=== PATIENT | male | born 1970 | race Two or more races ===

== ENCOUNTER 2017-10-04 23:59 | Emergency (ER) | payer SELFPAY ==
[~2017-10-04] VITALS: Ht 177.8 cm; Wt 113.4 kg
[2017-10-05 00:10] VITALS: BP 146/88
[2017-10-05] MEDS ORDERED: NKM (00:13)
[2017-10-05] MEDS ORDERED: Ketorolac 30mg Inj IM ONE (00:45)
[2017-10-05] MEDS ORDERED: Norco 5mg/325mg tab PO ONE (00:45)
[2017-10-05] MEDS ORDERED: KEFLEX500 MG ORAL (01:43)
[2017-10-05] MEDS ORDERED: NORCO 5-325 TA1 EACH ORAL (01:43)
[2017-10-05] MEDS ORDERED: IBUPROFEN600 MG ORAL (01:43)
[2017-10-05 01:50] VITALS: BP 146/88
--- NOTE | 2017-10-05 03:55 | Emergency Room Report ---
History of Present Illness General Chief Complaint: Pain Source: Patient Present Illness HPI 47-year-old male presents ED complaining of right ankle pain and swelling x2 days. Denies any trauma. States pain is sharp, 10 out of 10. Unable to bear weight. Patient states that sometime ago he had similar wrist pain which was non-traumatic and was seen at [facility] [place]. Patient was given medications and states it resolved. Patient cannot recall the diagnosis. Patient does not remember what he was prescribed. at bedside states that she is not sure but believes he may been "rheumatoid". I asked if patient has a history of gout and he does not recall. Denies fevers or chills. No other aggravating or leading factors. Denies any other associated symptoms Allergies: Coded Allergies: No Known Allergies (Unverified , 10/05/17) Patient History Past Medical History: none Past Surgical History: none Pertinent Family History: none Social History: Denies: smoking, alcohol use, drug use Immunizations: UTD Reviewed Nursing Documentation: PMH: Agreed, PSxH: Agreed Nursing Documentation-PMH Past Medical History: No Stated History Review of Systems All Other Systems: negative except mentioned in HPI Physical Exam Vital Signs Date Time Temp Pulse Resp B/P (MAP) Pulse Ox O2 Delivery O2 Flow Rate FiO2 10/05/17 00:06 99.3 104 16 146/88 97 Room Air Sp02 EP Interpretation: reviewed, normal General Appearance: no apparent distress, alert, GCS 15, non-toxic Head: normocephalic Eyes: bilateral eye normal inspection, bilateral eye PERRL ENT: normal ENT inspection Neck: normal inspection Respiratory: normal inspection Cardiovascular #1: normal inspection Gastrointestinal: normal inspection Rectal: deferred Genitourinary: no CVA tenderness Musculoskeletal: swelling - R ankle Neurologic: alert, oriented x3, responsive, motor strength/tone normal, sensory intact, speech normal Psychiatric: judgement/insight normal, memory normal, mood/affect normal, no suicidal/homicidal ideation Skin: normal color, no rash, warm/dry, well hydrated Lymphatic: no adenopathy Procedures Splinting Splinting : Consent: Verbal Pre-Made Type: ADELITA wrap - R ankle Pre-Proc Neuro Vasc Exam: normal Post-Proc Neuro Vasc Exam: normal Patient Tolerated: Well Complications: None Medical Decision Making Diagnostic Impression: Primary Impression: Ankle pain Qualified Codes: M25.571 - Pain in right ankle and joints of right foot ER Course Hospital Course 47-year-old M presents to ED complaining of R foot pain. no trauma Differential diagnoses include: Fracture, dislocation, sprain, contusion Clinical course Patient placed on stretcher. After initial history and physical, I ordered pain medications and Xrays of R foot/ankle Xrays prelim read shows no acute fracture/dislocation. marked soft tissue swelling There is no redness. My suspicion for a septic joint is low given the clinical history. no calf tenderness suggestive of DVT Consideration of rheumatoid arthritis versus gout. I do recommend a followup with orthopedics/rheumatology as outpatient for workup placed in adelita wrap, given crutches Diagnosis - ankle pain Stable and discharged to home with prescription for Motrin, Wilbur, Keflex. apply ice, keep elevated. weight bear as tolerated. Followup with PMD/ortho. Return to ED if symptoms recur or worsen Other X-Ray Diagnostic Results Other X-Ray Diagnostic Results #1: X-Ray ordered: R ankle # of Views/Limited Vs Complete: 3 View Indication: Pain EP Interpretation: Yes Interpretation: no dislocation, no fractures Impression: Other - no fx Electronically Signed by: Electronically signed by Nito Ramsey MD Other X-Ray Diagnostic Results #2: X-Ray ordered: R foot # of Views/Limited Vs Complete: 3 View Indication: Pain EP Interpretation: Yes Interpretation: no dislocation, no fractures Impression: Other - no fx Electronically Signed by: Electronically signed by Nito Ramsey MD Last Vital Signs Date Time Temp Pulse Resp B/P (MAP) Pulse Ox O2 Delivery O2 Flow Rate FiO2 10/05/17 01:50 99.3 103 16 146/88 97 Room Air Status: improved Disposition: HOME, SELF-CARE Condition: Stable Scripts Cephalexin* (KEFLEX*) 500 Mg Capsule 500 MG ORAL Q6H, #28 CAP 0 Refills Prov: NIOT RAMSEY M.D. 10/05/17 Hydrocodone Bit/Acetaminophen 5-325* (NORCO 5-325*) 1 Each Tablet 1 TAB ORAL Q6H Y for For Pain, #10 TAB 0 Refills Prov: NITO RAMSEY M.D. 10/05/17 Ibuprofen* (MOTRIN*) 600 Mg Tablet 600 MG ORAL Q8H Y for For Pain, #30 TAB 0 Refills Prov: NITO RAMSEY M.D. 10/05/17 Referrals: NOT CHOSEN IPA/,REFERRING (PCP) Patient Instructions: Gout, [id number], Rheumatoid Arthritis, [id number] NITO RAMSEY M.D. Oct 05, 2017 03:55
--- NOTE | 2017-10-05 09:13 | Diagnostic Imaging Report ---
Indication: Right foot pain Comparison: None Findings: 3 views of the right foot are obtained. There is no acute fracture or dislocation. Bony mineralization is normal. Severe hallux obvious deformity is noted. Traces are intact. No erosions. Soft tissues are unremarkable. Impression: No acute fracture or dislocation of the right foot Hallux valgus deformity
--- NOTE | 2017-10-05 09:14 | Diagnostic Imaging Report ---
Indication: PAIN Comparison: None Findings: 3 views of the right ankle show no acute fractures or dislocations. Bony mineralization is normal. No bony destructive lesions are identified. Talus is intact. Soft tissue swelling on the right ankle is noted.. Impression: No acute fracture or dislocation of the right ankle. Soft tissue swelling
== END 2017-10-05 01:50 | disposition home or self-care (01) ==
LOC: EMR 10-05 00:45
DX: M25.571 Pain in right ankle and joints of right foot (principal); M20.11 Hallux valgus (acquired), right foot
CPT/HCPCS: 73610; 73630; 96372; 99284; J1885